=== PATIENT | male | born 1990 | race Caucasian/White ===

== ENCOUNTER 2024-04-02 14:42 | Emergency (ER) | payer MEDICAID ==
[~2024-04-02] VITALS: Ht 185.4 cm; Wt 79.5 kg
[2024-04-02 14:49] VITALS: BP 131/71; PULSE 80; RESP 20; TEMP 98.6; O2SAT 99
[2024-04-02] MEDS ORDERED: DEXT5TAB16 PO (14:50)
[2024-04-02] MEDS ORDERED: METH-812 PO (16:52)
[2024-04-02] MEDS ORDERED: KETO10TA2 PO (16:52)
[2024-04-02] MEDS: KETOROLAC TROMETHAMINE 30 MG/ML VIAL IM ONE (16:58)
== END 2024-04-02 17:20 | disposition home or self-care (01) ==
LOC: EMS 14:45
DX: S39.012A Strain of muscle, fascia and tendon of lower back, initial encounter (principal); X50.1XXA Overexertion from prolonged static or awkward postures, initial encounter; Y93.89 Activity, other specified; Y92.89 Other specified places as the place of occurrence of the external cause; Y99.8 Other external cause status
CPT/HCPCS: 99283; 96372; J1885